=== PATIENT | male | born 1970 | race Caucasian/White ===

== ENCOUNTER 2020-11-10 15:26 | Emergency (ER) | payer BC ==
[~2020-11-10] VITALS: Ht 185.4 cm; Wt 122.5 kg
== END 2020-11-10 15:28 | disposition home or self-care (01) ==
LOC: ER1 15:26
DX: Z23 Encounter for immunization (principal); U07.1 COVID-19; Z88.5 Allergy status to narcotic agent; Z88.8 Allergy status to other drugs, medicaments and biological substances; F17.290 Nicotine dependence, other tobacco product, uncomplicated
CPT/HCPCS: 99283; M0243

== ENCOUNTER → 2020-11-21 | Outpatient (CLI) | payer BC | LOC: KOH-I 12:18 | DX: R06.02 Shortness of breath (principal); J84.9 Interstitial pulmonary disease, unspecified | CPT/HCPCS: 71046 ==

== ENCOUNTER → 2020-12-13 | Outpatient (CLI) | payer BC | LOC: KOH-I 10:49 | DX: R06.02 Shortness of breath (principal); Z86.16 Personal history of COVID-19 | CPT/HCPCS: 71046 ==